=== PATIENT | male | born 1970 | race Caucasian/White ===

== ENCOUNTER 2016-04-17 20:57 | Emergency (ER) | payer OTHER ==
--- NOTE | 2016-04-17 22:53 | ED ORDER SUMMARY ---
..... Patient: LUIS MORALES OrderSheet [facility] VisitID: [id number] [address] [place] [address] 45y, M Registration Date/Time: 04/17/2016 ORDER SHEET Weight: 163.2 kg (stated) Allergies: None GENERAL ORDERS: MEDICATION ORDERS: Bactrim DS PO (Tablet 800-160 mg) 1 tab (NOW) (22:51 04/17/2016 [place] JIMENEZ) (22:55 DBmartin R.N.) Hydrocodone-APAP PO 1 x 5/325 (NOW) (22:51 04/17/2016 [place] JIMENEZ) (22:55 Shemar R.N.) IV FLUIDS: ORDER SHEET NOTES: [Electronically signed by Kip Callahan R.N. (01:14 04/18/2016)] [Electronically signed by Brandon Mendez MD (22:15 04/18/2016)] [Electronically locked/signed by Kip Callahan R.N. (01:14 04/18/2016)]
--- NOTE | 2016-04-17 22:53 | ED ORDER SUMMARY ---
..... Patient: LUIS MORALES OrderSheet [facility] VisitID: [id number] [address] [place] [address] 45y, M Registration Date/Time: 04/17/2016 ORDER SHEET Weight: 163.2 kg (stated) Allergies: None GENERAL ORDERS: MEDICATION ORDERS: Bactrim DS PO (Tablet 800-160 mg) 1 tab (NOW) (22:51 04/17/2016 Paris JIMENEZ) (22:55 DBmartin R.N.) Hydrocodone-APAP PO 1 x 5/325 (NOW) (22:51 04/17/2016 [place] JIMENEZ) (22:55 Shemar R.N.) IV FLUIDS: ORDER SHEET NOTES: [Electronically signed by Kip Callahan R.N. (01:14 04/18/2016)] [Electronically signed by Brandon Mendez MD (22:15 04/18/2016)] [Electronically locked/signed by Kip Callahan R.N. (01:14 04/18/2016)]
--- NOTE | 2016-04-17 22:53 | ED CLINICAL REPORT ---
Clinical Report - Physicians/Mid Levels [facility] [address] [place] [address] 04/17/2016 20:59 Patient: LUIS MORALES Time Seen: 22:13. Arrived- By private vehicle. Historian- patient. HISTORY OF PRESENT ILLNESS Chief Complaint: TENDER AREA. This started about 2 days ago and is still present and now worse. It was gradual in onset. It is described as painful. It has been located on the right lower extremity (Junction of posterior/medial thigh and scrotum). Similar symptoms previously: None. REVIEW OF SYSTEMS No fever, chills, cough, difficulty breathing or abdominal pain. No nausea or vomiting. PAST HISTORY Shona CAD - stent. SOCIAL HISTORY Former smoker. ADDITIONAL NOTES The nursing notes have been reviewed. PHYSICAL EXAM Vital Signs: 04/17/2016 23:06 BP: 155/76. HR: 79. RR: 18. O2 saturation: 100%. Temp: 98.3 F. 04/17/2016 21:46 BP: 136/80. HR: 88. RR: 22. O2 saturation: 97%. Temp: 97.5 F. Appearance: Alert. No acute distress. Respiratory: No respiratory distress. Abdomen: Nontender. Skin: Single medium abscess with fluctuance to right thigh. PROGRESS AND PROCEDURES Incision & Drainage of Abscess: The abscess is located in the right groin and thigh (posterior/medial adjacent to the scrotum). The risks of the procedure, benefits and alternatives were explained. Consent was obtained. Local anesthesia provided using 1% lidocaine with epi. Skin cleansed with Betadine. The abscess was incised with a #11 surgical blade. A moderate amount of pus was drained. Cavity was irrigated with saline and packed with gauze. A dressing was applied. Disposition: Discharged. Condition: good. CLINICAL IMPRESSION Single deep abscess to the right inguinal region with incision and drainage. INSTRUCTIONS (YOUR ABSCESS WILL NEED TO BE REPACKED IN [address] YOUR [address] IF NOT THEN IN THE ED). Prescription Medications: Hydrocodone/APAP 5mg / 325mg: take 1-2 orally every 4 hours as needed for pain. Dispense ten (10). No refill. (in addition to usual monthly hydrocodone) Bactrim DS 800 mg / 160 mg: Take 1 tablet orally every 12 hours for 7 days. Dispense fourteen (14). No refills. Substitution is permissible. Follow-up: Follow up with your doctor SHONA in two days for wound check and packing removal. Understanding of the discharge instructions verbalized by patient and family. (Electronically signed by Brandon Mendez MD 04/18/2016 22:15)
--- NOTE | 2016-04-17 22:53 | ED NURSING NOTES ---
Clinical Report - Nurses [facility] [address] [place] [address] 04/17/2016 20:59 Patient: LUIS MORALES TRIAGE Triage time 21:46 Apr 17 2016. Acuity: LEVEL 4. Chief Complaint: SKIN LESION, BOIL and TENDER AREA. Alert. No acute distress. --21:54 Lisbeth Shepard R.N. 21:46 04/17/16. BP: 136/80. HR: 88. RR: 22. O2 saturation: 97%. Temp: 97.5 F. Pain level now 6/10. --21:54 Lisbeth Shepard R.N. Weight: 163.2 kg stated. Height/Length: 72 inches Per Patient. BMI: 48.8. --21:45 Lisbeth Shepard R.N. Medications Lisinopril Oral 20 mg, daily. --21:48 Lisbeth Shepard R.N. Aspirin Oral (Tablet 81 mg). --21:48 Lisbeth Shepard R.N. Hydrocodone-Acetaminophen Oral 5 mg. --21:48 Lisbeth Shepard R.N. Plavix Oral 75 mg, daily. --21:49 Lisbeth Shepard R.N. Atorvastatin Calcium Oral. --21:53 Lisbeth Shepard R.N. Pill for diabetes. --21:53 Lisbeth Shepard R.N. Medication/allergy information source: the patient. --21:54 Lisbeth Shepard R.N. Allergies None. --21:49 Lisbeth Shepard R.N. History Arrived by private vehicle. Historian: patient. Primary physician (Dr. Mcclendon). ( Noticed a boil or pimple like spot on Right Inner Thigh. Hard.). Reported as located on the right thigh. This started yesterday. Treatment TRANSIT SPECIALIST: None. PAST MEDICAL HX: Immunizations: has received tetanus within 10 years; seasonal influenza. SOCIAL HX: Former smoker (cigarette). Occasional alcohol use. No drug use. No infectious disease exposure. FALL RISK ASSESSMENT: Fall risk assessment completed. No fall risk identified. NUTRITIONAL RISK ASSESSMENT: The nutritional risk assessment revealed no deficiencies. FUNCTIONAL ASSESSMENT: Functional assessment: no impairments noted. LEARNING NEEDS ASSESSMENT: The learning needs assessment revealed no barriers. SKIN INTEGRITY ASSESSMENT: Skin integrity risk assessment completed. No skin integrity risk identified. --21:54 Lisbeth Shepard R.N. PROBLEMS: Myocardial Infarction. Puncture Wound. Athlete's Foot. Cellulitis. Tetanus Status. Obesity. Dental Pain. Subconjunctival Hemorrhage. Hypertension. Immunizations. --21:50 Lisbeth Shepard R.N. ADDITIONAL SURGERIES: Stent. --21:52 Lisbeth Shepard R.N. The following entry was struck by Lisbeth Shepard R.N., 21:52 <<STRICKEN ENTRY-- Stent. --21:50 Lisbeth Shepard R.N. --END STRIKE>>. Interventions ID band on patient. To room. --21:54 Lisbeth Shepard R.N. PHYSICAL ASSESSMENT Ambulatory to room. --21:54 Lisbeth Shepard R.N. GENERAL / NEURO / PSYCH: Alert. The patient does not appear to be in acute distress. Oriented X 4. HEENT: Pupils equal, round and reactive to light. Mucous membranes are pink. RESPIRATORY: Respirations not labored. Breath sounds within normal limits. GI / : Abdominal tenderness. SKIN: Skin is warm and dry. Tenderness present in the right groin. Increased warmth present. No drainage. --22:17 Kip Callahan R.N. NURSING PROGRESS NOTES Patient ready for evaluation- ED physician notified. --21:54 Lisbeth Shepard R.N. Monitoring of patient in place. Patient gowned. Reassurance given. Two patient identifiers checked. Bed placed in lowest position. --22:17 Kip Callahan R.N. 22:55 04/17/2016 Bactrim DS (Sulfamethoxazole-TMP DS) PO 1 tab given. Allergies verified and confirmed 5 rights. --22:55 Kip Callahan R.N. 22:55 04/17/2016 Hydrocodone-APAP (Hydrocodone-Acetaminophen) PO 5/325 mg Tablets 1 tab given. Allergies verified, confirmed 5 rights and sedative warning given to the patient. --22:55 Kip Callahan R.N. DISPOSITION / DISCHARGE Departure time: 23:Apr 17 2016. No learning barriers present. Discharge instructions provided and reviewed with the patient. Reviewed warnings. Reviewed medication(s). Patient verbalized understanding. Written instructions provided in Slovak. The patient was discharged by the physician. ( Pt ambulated on discharge steady on his feet verbalized understanding of discharge instructions follow up care and medical assistant ob gyn). FALL RISK ASSESSMENT: Fall risk assessment completed. No fall risk identified. --23:08 Kip Callahan R.N. 23:06 04/17/16. BP: 155/76. HR: 79. RR: 18. O2 saturation: 100%. Temp: 98.3 F. Pain level now 5/10. --23:08 Kip Callahan R.N. Locked/Released at 04/18/2016 1:14 by Kip Callahan R.N.
--- NOTE | 2016-04-17 22:53 | ED NURSING NOTES ---
Clinical Report - Nurses [facility] [address] [place] [address] 04/17/2016 20:59 Patient: LUIS MORALES TRIAGE Triage time 21:46 Apr 17 2016. Acuity: LEVEL 4. Chief Complaint: SKIN LESION, BOIL and TENDER AREA. Alert. No acute distress. --21:54 Lisbeth Shepard R.N. 21:46 04/17/16. BP: 136/80. HR: 88. RR: 22. O2 saturation: 97%. Temp: 97.5 F. Pain level now 6/10. --21:54 Lisbeth Shepard R.N. Weight: 163.2 kg stated. Height/Length: 72 inches Per Patient. BMI: 48.8. --21:45 Lisbeth Shepard R.N. Medications Lisinopril Oral 20 mg, daily. --21:48 Lisbeth Shepard R.N. Aspirin Oral (Tablet 81 mg). --21:48 Lisbeth Shepard R.N. Hydrocodone-Acetaminophen Oral 5 mg. --21:48 Lisbeth Shepard R.N. Plavix Oral 75 mg, daily. --21:49 Lisbeth Shepard R.N. Atorvastatin Calcium Oral. --21:53 Lisbeth Shepard R.N. Pill for diabetes. --21:53 Lisbeth Shepard R.N. Medication/allergy information source: the patient. --21:54 Lisbeth Shepard R.N. Allergies None. --21:49 Lisbeth Shepard R.N. History Arrived by private vehicle. Historian: patient. Primary physician (Dr. Mcclendon). ( Noticed a boil or pimple like spot on Right Inner Thigh. Hard.). Reported as located on the right thigh. This started yesterday. Treatment COST ESTIMATOR: None. PAST MEDICAL HX: Immunizations: has received tetanus within 10 years; seasonal influenza. SOCIAL HX: Former smoker (cigarette). Occasional alcohol use. No drug use. No infectious disease exposure. FALL RISK ASSESSMENT: Fall risk assessment completed. No fall risk identified. NUTRITIONAL RISK ASSESSMENT: The nutritional risk assessment revealed no deficiencies. FUNCTIONAL ASSESSMENT: Functional assessment: no impairments noted. LEARNING NEEDS ASSESSMENT: The learning needs assessment revealed no barriers. SKIN INTEGRITY ASSESSMENT: Skin integrity risk assessment completed. No skin integrity risk identified. --21:54 Lisbeth Shepard R.N. PROBLEMS: Myocardial Infarction. Puncture Wound. Athlete's Foot. Cellulitis. Tetanus Status. Obesity. Dental Pain. Subconjunctival Hemorrhage. Hypertension. Immunizations. --21:50 Lisbeth Shepard R.N. ADDITIONAL SURGERIES: Stent. --21:52 Lisbeth Shepard R.N. The following entry was struck by Lisbeth Shepard R.N., 21:52 <<STRICKEN ENTRY-- Stent. --21:50 Lisbeth Shepard R.N. --END STRIKE>>. Interventions ID band on patient. To room. --21:54 Lisbeth Shepard R.N. PHYSICAL ASSESSMENT Ambulatory to room. --21:54 Lisbeth Shepard R.N. GENERAL / NEURO / PSYCH: Alert. The patient does not appear to be in acute distress. Oriented X 4. HEENT: Pupils equal, round and reactive to light. Mucous membranes are pink. RESPIRATORY: Respirations not labored. Breath sounds within normal limits. GI / : Abdominal tenderness. SKIN: Skin is warm and dry. Tenderness present in the right groin. Increased warmth present. No drainage. --22:17 Kip Callahan R.N. NURSING PROGRESS NOTES Patient ready for evaluation- ED physician notified. --21:54 Lisbeth Shepard R.N. Monitoring of patient in place. Patient gowned. Reassurance given. Two patient identifiers checked. Bed placed in lowest position. --22:17 Kip Callahan R.N. 22:55 04/17/2016 Bactrim DS (Sulfamethoxazole-TMP DS) PO 1 tab given. Allergies verified and confirmed 5 rights. --22:55 Kip Callahan R.N. 22:55 04/17/2016 Hydrocodone-APAP (Hydrocodone-Acetaminophen) PO 5/325 mg Tablets 1 tab given. Allergies verified, confirmed 5 rights and sedative warning given to the patient. --22:55 Kip Callahan R.N. DISPOSITION / DISCHARGE Departure time: 23:Apr 17 2016. No learning barriers present. Discharge instructions provided and reviewed with the patient. Reviewed warnings. Reviewed medication(s). Patient verbalized understanding. Written instructions provided in Bengali. The patient was discharged by the physician. ( Pt ambulated on discharge steady on his feet verbalized understanding of discharge instructions follow up care and medical liaison). FALL RISK ASSESSMENT: Fall risk assessment completed. No fall risk identified. --23:08 Kip Callahan R.N. 23:06 04/17/16. BP: 155/76. HR: 79. RR: 18. O2 saturation: 100%. Temp: 98.3 F. Pain level now 5/10. --23:08 Kip Callahan R.N. Locked/Released at 04/18/2016 1:14 by Kip Callahan R.N.
--- NOTE | 2016-04-17 22:53 | ED CLINICAL REPORT ---
Clinical Report - Physicians/Mid Levels [facility] [address] [place] [address] 04/17/2016 20:59 Patient: LUIS MORALES Time Seen: 22:13. Arrived- By private vehicle. Historian- patient. HISTORY OF PRESENT ILLNESS Chief Complaint: TENDER AREA. This started about 2 days ago and is still present and now worse. It was gradual in onset. It is described as painful. It has been located on the right lower extremity (Junction of posterior/medial thigh and scrotum). Similar symptoms previously: None. REVIEW OF SYSTEMS No fever, chills, cough, difficulty breathing or abdominal pain. No nausea or vomiting. PAST HISTORY Shona CAD - stent. SOCIAL HISTORY Former smoker. ADDITIONAL NOTES The nursing notes have been reviewed. PHYSICAL EXAM Vital Signs: 04/17/2016 23:06 BP: 155/76. HR: 79. RR: 18. O2 saturation: 100%. Temp: 98.3 F. 04/17/2016 21:46 BP: 136/80. HR: 88. RR: 22. O2 saturation: 97%. Temp: 97.5 F. Appearance: Alert. No acute distress. Respiratory: No respiratory distress. Abdomen: Nontender. Skin: Single medium abscess with fluctuance to right thigh. PROGRESS AND PROCEDURES Incision & Drainage of Abscess: The abscess is located in the right groin and thigh (posterior/medial adjacent to the scrotum). The risks of the procedure, benefits and alternatives were explained. Consent was obtained. Local anesthesia provided using 1% lidocaine with epi. Skin cleansed with Betadine. The abscess was incised with a #11 surgical blade. A moderate amount of pus was drained. Cavity was irrigated with saline and packed with gauze. A dressing was applied. Disposition: Discharged. Condition: good. CLINICAL IMPRESSION Single deep abscess to the right inguinal region with incision and drainage. INSTRUCTIONS (YOUR ABSCESS WILL NEED TO BE REPACKED IN [address] YOUR DR. IF NOT THEN IN THE ED). Prescription Medications: Hydrocodone/APAP 5mg / 325mg: take 1-2 orally every 4 hours as needed for pain. Dispense ten (10). No refill. (in addition to usual monthly hydrocodone) Bactrim DS 800 mg / 160 mg: Take 1 tablet orally every 12 hours for 7 days. Dispense fourteen (14). No refills. Substitution is permissible. Follow-up: Follow up with your doctor SHONA in two days for wound check and packing removal. Understanding of the discharge instructions verbalized by patient and family. (Electronically signed by Brandon Mendez MD 04/18/2016 22:15)
--- NOTE | 2016-04-18 22:16 | ED MAR SUMMARY ---
..... Medication Administration Record [facility] [address] [place] [address] Patient: LUIS MORALES Visit ID: [id number] 45y, M Weight: 163.2 kg Height/Length: 72 in BMI: 48.8 ALLERGIES: None Given 22:55 04/17/2016 Kip Callahan, R.N. Medication Administered: BACTRIM DS [PO] (SULFAMETHOXAZOLE-TMP DS), Dose: 1 tab PO. Medication Ordered: Bactrim DS PO (Tablet 800-160 mg) 1 tab (NOW). Given 22:55 04/17/2016 Kip Callahan, R.N. Medication Administered: HYDROCODONE-APAP [PO] (HYDROCODONE-ACETAMINOPHEN), Dose: 1 tab 5/325 mg Tablets PO. Medication Ordered: Hydrocodone-APAP PO 1 x 5/325 (NOW).
--- NOTE | 2016-04-18 22:16 | ED MED RECONCILIATION SUMMARY ---
Patient: LUIS MORALES Medication Reconciliation Report [facility] VisitID: [id number] [address] [place] [address] 45y, M Registration Date/Time: 04/17/2016 Weight: 163.2 kg Height/Length: 72 in. BMI: 48.8 ALLERGIES: None The patient's Home Medications are listed below: THE FOLLOWING MEDICATIONS NEED TO BE RECONCILED: Aspirin Oral (81 mg) Atorvastatin Calcium Oral Hydrocodone-Acetaminophen Oral 5 mg Lisinopril Oral 20 mg, daily Pill for diabetes Plavix Oral 75 mg, daily The source(s) of the original Home Medication information: patient The following Medications were given to the patient in the Emergency Department: Bactrim DS [PO] PO 1 tab, administered: 04/17/2016 10:55:00 PM Hydrocodone-APAP [PO] PO 1 tab, administered: 04/17/2016 10:55:00 PM The following Medications were prescribed to the patient: Hydrocodone/APAP 5mg / 325mg: take 1-2 orally every 4 hours as needed for pain. Dispense ten (10). No refill.(in addition to usual monthly hydrocodone) -- Brandon Mendez MD Bactrim DS 800 mg / 160 mg: Take 1 tablet orally every 12 hours for 7 days. Dispense fourteen (14). No refills. Substitution is permissible. -- Brandon Mendez MD
--- NOTE | 2016-04-18 22:16 | ED MAR SUMMARY ---
..... Medication Administration Record [facility] [address] [place] [address] Patient: LUIS MORALES Visit ID: [id number] 45y, M Weight: 163.2 kg Height/Length: 72 in BMI: 48.8 ALLERGIES: None Given 22:55 04/17/2016 Kip Callahan, R.N. Medication Administered: BACTRIM DS [PO] (SULFAMETHOXAZOLE-TMP DS), Dose: 1 tab PO. Medication Ordered: Bactrim DS PO (Tablet 800-160 mg) 1 tab (NOW). Given 22:55 04/17/2016 Kip Callahan, R.N. Medication Administered: HYDROCODONE-APAP [PO] (HYDROCODONE-ACETAMINOPHEN), Dose: 1 tab 5/325 mg Tablets PO. Medication Ordered: Hydrocodone-APAP PO 1 x 5/325 (NOW).
--- NOTE | 2016-04-18 22:16 | ED MED RECONCILIATION SUMMARY ---
Patient: LUIS MORALES Medication Reconciliation Report [facility] VisitID: [id number] [address] [place] [address] 45y, M Registration Date/Time: 04/17/2016 Weight: 163.2 kg Height/Length: 72 in. BMI: 48.8 ALLERGIES: None The patient's Home Medications are listed below: THE FOLLOWING MEDICATIONS NEED TO BE RECONCILED: Aspirin Oral (81 mg) Atorvastatin Calcium Oral Hydrocodone-Acetaminophen Oral 5 mg Lisinopril Oral 20 mg, daily Pill for diabetes Plavix Oral 75 mg, daily The source(s) of the original Home Medication information: patient The following Medications were given to the patient in the Emergency Department: Bactrim DS [PO] PO 1 tab, administered: 04/17/2016 10:55:00 PM Hydrocodone-APAP [PO] PO 1 tab, administered: 04/17/2016 10:55:00 PM The following Medications were prescribed to the patient: Hydrocodone/APAP 5mg / 325mg: take 1-2 orally every 4 hours as needed for pain. Dispense ten (10). No refill.(in addition to usual monthly hydrocodone) -- Brandon Mendez MD Bactrim DS 800 mg / 160 mg: Take 1 tablet orally every 12 hours for 7 days. Dispense fourteen (14). No refills. Substitution is permissible. -- Brandon Mendez MD
--- NOTE | 2016-04-18 22:16 | ED DISCHARGE INSTRUCTIONS ---
Patient: LUIS MORALES General Instructions [facility] VisitID: [id number] [place] [address] 45y, M Registration Date/Time: 04/17/2016 Single deep abscess to the right inguinal region with incision and drainage. INSTRUCTIONS (YOUR ABSCESS WILL NEED TO BE REPACKED IN [address] YOUR DR[address] IF NOT THEN IN THE ED). Prescription Medications: Hydrocodone/APAP 5mg / 325mg: take 1-2 orally every 4 hours as needed for pain. Dispense ten (10). No refill. (in addition to usual monthly hydrocodone) Bactrim DS 800 mg / 160 mg: Take 1 tablet orally every 12 hours for 7 days. Dispense fourteen (14). No refills. Substitution is permissible. Follow-up: Follow up with your doctor SHONA in two days for wound check and packing removal. Understanding of the discharge instructions verbalized by patient and family. ADDITIONAL INFORMATION Abscess [Incision & Drainage] An abscess (sometimes called a boil) occurs when bacteria get trapped under the skin and begin to grow. Pus forms inside the abscess as the body responds to the bacteria. An abscess can occur with an insect bite, ingrown hair, blocked oil gland, pimple, cyst, or puncture wound. Treatment of your abscess has required an incision to drain the pus. If the abscess pocket was large, a gauze packing may have been inserted. This will need to be removed and possibly replaced on your next visit. Antibiotics are not required in the treatment of a simple abscess, unless the infection is spreading into the skin around the wound (known as cellulitis). Healing of the wound will take about one to two weeks depending on the size of the abscess. Healthy tissue will grow from the bottom and sides of the opening until it seals over. Home Care: The wound may drain for the first two days. Cover the wound with a clean dry dressing. If the dressing becomes soaked with blood or pus, change it. If a gauze packing was placed inside the abscess cavity, you may be advised to remove it yourself. You may do this in the shower. Once the packing is removed, you should wash the area in the shower or bath 3 to 4 times a day, until the skin opening has closed. If you were prescribed antibiotics, take them as directed until they are all gone. You may use acetaminophen (Tylenol) or ibuprofen (Motrin, Advil) to control pain, unless another pain medicine was prescribed. [ NOTE: If you have liver disease or ever had a stomach ulcer, talk with your doctor before using these medicines.] Follow Up with your doctor as advised by our staff. If a gauze packing was inserted in your wound, it should be removed in 1-2 days. Check your wound every day for the signs of worsening infection listed below. Get Prompt Medical Attention if any of the following occur: Increasing redness or swelling Red streaks in the skin leading away from the wound Increasing local pain or swelling Continued pus draining from the wound two days after treatment Fever of 100.4F (38C) or higher, or as directed by your healthcare provider Hydrocodone Bitartrate, Acetaminophen Oral tablet What is this medicine? ACETAMINOPHEN; HYDROCODONE (a set a RICKY cora fen; zoila droe KOE done) is a pain reliever. It is used to treat mild to moderate pain. How should I use this medicine? Take this medicine by mouth. Swallow it with a full glass of water. Follow the directions on the prescription label. If the medicine upsets your stomach, take the medicine with food or milk. Do not take more than you are told to take. Talk to your manager database regarding the use of this medicine in children. This medicine is not approved for use in children. What side effects may I notice from receiving this medicine? Side effects that you should report to your doctor or health respiratory care practitioner as soon as possible: allergic reactions like skin rash, itching or hives, swelling of the face, lips, or tongue breathing problems confusion feeling faint or lightheaded, falls stomach pain yellowing of the eyes or skin Side effects that usually do not require medical attention (report to your doctor or health respiratory care practitioner if they continue or are bothersome): nausea, vomiting stomach upset What may interact with this medicine? alcohol antihistamines isoniazid medicines for depression, anxiety, or psychotic disturbances medicines for sleep muscle relaxants naltrexone narcotic medicines (opiates) for pain phenobarbital ritonavir tramadol What if I miss a dose? If you miss a dose, take it as soon as you can. If it is almost time for your next dose, take only that dose. Do not take double or extra doses. Where should I keep my medicine? Keep out of the reach of children. This medicine can be abused. Keep your medicine in a safe place to protect it from theft. Do not share this medicine with anyone. Selling or giving away this medicine is dangerous and against the law. Store at room temperature between 15 and 30 degrees C (59 and 86 degrees F). Protect from light. Keep container tightly closed. Throw away any unused medicine after the expiration date. Discard unused medicine and used packaging carefully. Pets and children can be harmed if they find used or lost packages. What should I tell my health care provider before I take this medicine? They need to know if you have any of these conditions: brain tumor Crohn's disease, inflammatory bowel disease, or ulcerative colitis drink more than 3 alcohol-containing drinks per day drug abuse or addiction head injury heart or circulation problems kidney disease or problems going to the bathroom liver disease lung disease, asthma, or breathing problems an unusual or allergic reaction to acetaminophen, hydrocodone, other opioid analgesics, other medicines, foods, dyes, or preservatives or trying to get breast-feeding What should I watch for while using this medicine? Tell your doctor or health respiratory care practitioner if your pain does not go away, if it gets worse, or if you have new or a different type of pain. You may develop tolerance to the medicine. Tolerance means that you will need a higher dose of the medicine for pain relief. Tolerance is normal and is expected if you take the medicine for a long time. Do not suddenly stop taking your medicine because you may develop a severe reaction. Your body becomes used to the medicine. This does NOT mean you are addicted. Addiction is a behavior related to getting and using a drug for a non-medical reason. If you have pain, you have a medical reason to take pain medicine. Your doctor will tell you how much medicine to take. If your doctor wants you to stop the medicine, the dose will be slowly lowered over time to avoid any side effects. You may get drowsy or dizzy when you first start taking the medicine or change doses. Do not drive, use machinery, or do anything that may be dangerous until you know how the medicine affects you. Stand or sit up slowly. There are different types of narcotic medicines (opiates) for pain. If you take more than one type at the same time, you may have more side effects. Give your health care provider a list of all medicines you use. Your doctor will tell you how much medicine to take. Do not take more medicine than directed. Call emergency for help if you have problems breathing. The medicine will cause constipation. Try to have a bowel movement at least every 2 to 3 days. If you do not have a bowel movement for 3 days, call your doctor or health respiratory care practitioner. Too much acetaminophen can be very dangerous. Do not take Tylenol (acetaminophen) or medicines that contain acetaminophen with this medicine. Many non-prescription medicines contain acetaminophen. Always read the labels carefully. You have been given the following additional information: Abscess, Incision And Drainage Hydrocodone Bitartrate, Acetaminophen Oral tablet (Electronically signed by Brandon Mendez MD 04/18/2016 22:15)
== END 2016-04-17 23:02 | disposition home or self-care (01) ==
LOC: ED SRH 20:57
DX: L02.214 Cutaneous abscess of groin (principal); I25.2 Old myocardial infarction; I10 Essential (primary) hypertension; Z79.82 Long term (current) use of aspirin; Z79.02 Long term (current) use of antithrombotics/antiplatelets; Z79.899 Other long term (current) drug therapy; Z87.891 Personal history of nicotine dependence